=== PATIENT | female | born 1930 | race Caucasian/White ===

== ENCOUNTER 2017-03-30 07:16 | Day surgery (SDC) | payer MEDICARE, BC ==
[2017-03-30] MEDS ORDERED: Dextrose 5%-Lactated Ringers 1,000 ML IV SCH (07:45)
[2017-03-30] MEDS ORDERED: fentaNYL 100 MCG/2 ML SDV ONE (08:23)
[2017-03-30] MEDS ORDERED: Propofol 200 MG/20 ML SDV ONE (08:23)
[2017-03-30 13:13] VITALS: BP 163/66
--- NOTE | 2017-04-06 10:42 | OR ---
DATE OF PROCEDURE: 03/30/2017 PREOPERATIVE DIAGNOSIS: Intermittent diarrhea. POSTOPERATIVE DIAGNOSES: 1. Intermittent diarrhea associated with focal colitis involving the cecum and ascending colon. 2. Uncomplicated left colon diverticulosis. OPERATIVE PROCEDURE: Flexible colonoscopy with biopsies of cecum and ascending colon ([id number]). ANESTHESIA: IV sedation. INDICATION FOR PROCEDURE: This is an 86-year-old female presenting with some intermittent problems with diarrhea. She recently went off the metformin, which she thinks may have helped some, but she is still having some significant symptoms. There is some history of some blood in the diarrhea in the chart, but the patient denies having significant bleeding. Plan is to proceed with a flexible colonoscopy with biopsies and/or polypectomy as indicated. Potential risks including bleeding and perforation were discussed, and the patient wishes to proceed. DETAILS OF PROCEDURE: The patient was taken to the operating room and placed in a left lateral decubitus position. IV sedation was administered, after which the initial digital rectal exam was performed and was unremarkable. Colonoscope was then passed into the rectum with retroflexion revealing uncomplicated hemorrhoidal columns. The scope was eventually passed to the level of the cecum. The prep was fairly good with there being only a small amount of liquid stool present. The primary finding of note was that of focal colitis involving the cecum and ascending colon. The mucosa in this area was generally quite thickened and leathery, and had patchy reddened areas. There was no true ulceration at this point. Multiple biopsies were obtained from this area. As one passed in the transverse colon, the findings normalized and apart from some uncomplicated left colonic diverticulosis, the remainder of the colon exam was unremarkable. After the biopsies had been completed, the scope was withdrawn, and the above findings reconfirmed, and the procedure then concluded. At this point, we will not initiate any additional treatment. We will have this patient continue off the metformin, and she will be scheduled to follow up with Jen Chapman and/or the Internal Medicine staff at [facility] in 7 to 10 days. Raul Lilly MD /[id number]
== END 2017-03-30 13:15 | disposition home or self-care (01) ==
LOC: JP.SDS 07:16
PROVIDERS: ATTEND Surgery
DX: K63.3 Ulcer of intestine (principal); K57.30 Diverticulosis of large intestine without perforation or abscess without bleeding; K64.9 Unspecified hemorrhoids; K21.9 Gastro-esophageal reflux disease without esophagitis; I10 Essential (primary) hypertension; G43.909 Migraine, unspecified, not intractable, without status migrainosus; E11.9 Type 2 diabetes mellitus without complications; Z88.5 Allergy status to narcotic agent; Z98.890 Other specified postprocedural states
CPT/HCPCS: 45380; 87046; 87177; 87209; 87493; 87899; 88305; 89055; J2704; J3010; J7042

== ENCOUNTER 2020-04-07 11:57 | Inpatient (IN) | payer MEDICARE, OTHER ==
[2020-04-07] MEDS ORDERED: Sodium Chloride 0.9% 10 ML Syringe FLUSH PRN ×2 (13:49→19:26)
--- NOTE | 2020-04-07 13:59 | EDM.PDOC ---
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 States over the last 2 weeks she has continued to decline with poor oral intake she does feel nauseated was functioning quite independent prior to the stroke. No fevers, - Related Data Allergies Allergy/AdvReac Type Severity Reaction Status Date / Time metformin Allergy Cannot Verified 04/07/20 13:11 Remember codeine AdvReac Nausea and Verified 04/07/20 13:11 Vomiting oxycodone HCl [From Percocet] AdvReac Hallucinati Verified 04/07/20 13:11 ons Home Meds: Home Meds Aspirin 81 mg PO DAILY 03/17/14 [History] Cetirizine HCl [Zyrtec] 10 mg PO DAILY 03/17/14 [History] Fluticasone Propionate 2 spray KARLA DAILY 03/17/14 [History] Omeprazole 20 mg PO DAILY 03/17/14 [History] lisinopriL [Prinivil] 30 mg PO DAILY 03/17/14 [History] Metoprolol Tartrate [Lopressor] 50 mg PO DAILY 03/26/17 [History] Clopidogrel Bisulfate [Clopidogrel] 75 mg PO 04/07/20 [History] Mirtazapine 1 tab PO DAILY 04/07/20 [History] Ondansetron [Zofran ODT] 1 tab PO BID 04/07/20 [History] Past Medical History HEENT History: Reports: Allergic Rhinitis, Cataract, Impaired Vision, Otitis Media, Sinusitis, Other (See Below) Other HEENT History: 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 Cardiovascular History: Reports: Arrhythmia, Heart Murmur, High Cholesterol, H ypertension, Other (See Below) Other Cardiovascular History: tachycardia Respiratory History: Reports: Bronchitis, Recurrent Gastrointestinal History: Reports: Chronic Diarrhea, Gastritis, GERD Genitourinary History: Reports: UTI, Recurrent [employer] History: Reports: , Spontaneous Musculoskeletal History: Reports: Arthritis, Fracture, Osteoarthritis, Other (See Below) Other Musculoskeletal History: osteopenia Neurological History: Reports: Migraines, Vertigo Other Neuro History: x2 1970 and 2012 Psychiatric History: Reports: Depression Endocrine/Metabolic History: Reports: Diabetes, Type II, Other (See Below) Other Endocrine/Metabolic History: little nodule on us in thyroid Immunologic History: Reports: None Oncologic (Cancer) History: Reports: Other (See Below) Other Oncologic History: skin CA Dermatologic History: Reports: Other (See Below) 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 - Infectious Disease History Infectious Disease History: Reports: Chicken Pox, Measles, Mononucleosis, Pertussis (Whooping Cough) - Past Surgical History Head Surgeries/Procedures: Reports: None HEENT Surgical History: Reports: Cataract Surgery, Oral Surgery Cardiovascular Surgical History: Reports: None Respiratory Surgical History: Reports: None GI Surgical History: Reports: Appendectomy, Colostomy Female Surgical History: Reports: D&C Endocrine Surgical History: Reports: None Neurological Surgical History: Reports: None Musculoskeletal Surgical History: Reports: None Oncologic Surgical History: Reports: None Dermatological Surgical History: Reports: Plastic Surgical Reconstruction/Repair, Skin Biopsy Social & Family History - Family History Family Medical History: Noncontributory - Tobacco Use Smoking Status *Q: Never Smoker - Caffeine Use Caffeine Use: Reports: Coffee ED ROS GENERAL - Review of Systems Review Of Systems: See Below Constitutional: Reports: Weakness, Weight Loss HEENT: Reports: No Symptoms Respiratory: Reports: No Symptoms Cardiovascular: Reports: No Symptoms GI/Abdominal: Reports: Abdominal Pain (Gastric region), Nausea, Vomiting. Denies: Constipation, Diarrhea : Reports: No Symptoms Musculoskeletal: Reports: No Symptoms Skin: Reports: No Symptoms Neurological: Reports: No Symptoms ED EXAM, GENERAL - Physical Exam Exam: See Below Free Text/Narrative:: General: Elderly female not in any distress, alert GCS of 14 eyes only open to voice HEENT: head is atraumatic normocephalic, eyes pupils equal round reactive to light, sclera clear no conjunctivitis appreciated. Ears tympanic membranes clear and [place] landmarks and light reflex are present bilaterally canals are clear. Nose no septal deviation, nares are clear, no blood present. Mouth mucosa is moist and pink no erythema or exudate noted in soft palate, tongue is midline uvula is midline, dentition is intact. Neck: Supple no thyromegaly no tracheal deviation. Nodes: Cervical nodes subclavicular nodes nontender no palpable lymphadenopathy noted. Lungs: clear to auscultation bilaterally with symmetrical respirations, no adventitious noise appreciated. CV: Regular rate and rhythm S1 and S2 appreciated 2 out of 6 systolic ejection murmur best appreciated left sternal border murmurs rubs or gallops noted. Abdomen: Soft, nontender, no palpable masses or organomegaly appreciated, no dis tention no guarding bowel sounds are present, [scars ]. Neuro: Cranial nerves II test with pupillary light reflex 3 mm to 2 mm bilaterally, CN III test pupillary constriction, lid elevation and eye abduction bilaterally, CN IV downward movement of eyes bilaterally, CN V good jaw movement, CN lateral deviation of the eyes bilaterally to finger movement, CN VII symmetrical smile shows teeth without difficulty family states a slight droop on this side but I cannot appreciate it, CN VIII pass finger rub to ears bilaterally, CN IX adequate voice and tone, CN X adequate voice and tone no difficulty swallowing, CN XI can shrug shoulders without difficulty, CN XII can stick tongue out without difficulty, cranial nerves II to XII intact as tested, Skin: Warm and dry, intact Extremities: No lower extremity edema appreciated, pedal pulse is +2. Course - Vital Signs Last Recorded V/S: Last Vital Signs Temp 96.9 F 04/07/20 13:30 Pulse 96 04/07/20 13:30 Resp 14 04/07/20 13:30 BP 156/64 H 04/07/20 13:30 Pulse Ox 98 04/07/20 13:30 - Orders/Labs/Meds Orders: Active Orders 24 hr Category Date Time Status Peripheral IV Care [RC] . DIRECTED Care 04/07/20 13:50 Active CULTURE URINE [RM] Urgent Lab 04/07/20 16:18 Received Lactated Ringers [Ringers, Lactated] 1,000 ml Med 04/07/20 16:20 Active IV BOLUS Sodium Chloride 0.9% [Normal Saline] 1,000 ml Med 04/07/20 16:30 Active IV ASDIRECTED Sodium Chloride 0.9% [Saline Flush] Med 04/07/20 13:49 Active 10 ml FLUSH ASDIRECTED PRN Peripheral IV Insertion Adult [OM.PC] Stat Oth 04/07/20 13:49 Ordered Medication Orders Lactated Ringer's (Ringers, Lactated) 1,000 mls @ 250 mls/hr IV BOLUS ONE Stop: 04/07/20 20:19 Last Admin: 04/07/20 16:38 Dose: 250 mls/hr Documented by: HOLDEN Sodium Chloride (Normal Saline) 1,000 mls @ 250 mls/hr IV ASDIRECTED JULIANE Sodium Chloride (Saline Flush) 10 ml FLUSH ASDIRECTED PRN PRN Reason: Keep Vein Open Last Admin: 04/07/20 14:39 Dose: 10 ml Documented by: HOLDEN Labs: Laboratory Tests 04/07/20 04/07/20 04/07/20 Range/Units 14:05 14:05 14:05 WBC 14.7 H (4.5-11.0) K/uL RBC 5.16 (3.30-5.50) M/uL Hgb 14.7 (12.0-15.0) g/dL Hct 43.6 (36.0-48.0) % MCV 85 (80-98) fL MCH 29 (27-31) pg MCHC 34 (32-36) % Plt Count 439 H (150-400) K/uL Neut % (Auto) 84 H (36-66) % Lymph % (Auto) 10 L (24-44) % Gove % (Auto) 5 (2-6) % Eos % (Auto) 0 L (2-4) % Baso % (Auto) 0 (0-1) % Sodium 123 L (140-148) mmol/L Potassium 4.3 (3.6-5.2) mmol/L Chloride 91 L (100-108) mmol/L Carbon Dioxide 18 L (21-32) mmol/L Anion Gap 18.3 H (5.0-14.0) mmol/L BUN 35 H (7-18) mg/dL Creatinine 1.8 H (0.6-1.0) mg/dL Est Cr Clr Drug Dosing 15.52 mL/min Estimated GFR (MDRD) 27 L (>60) Glucose 194 H (74-106) mg/dL Lactic Acid 1.7 (0.4-2.0) mmol/L Calcium 9.7 (8.5-10.1) mg/dL Total Bilirubin 0.4 (0.2-1.0) mg/dL AST 39 H (15-37) U/L ALT 40 (12-78) U/L Alkaline Phosphatase 72 (46-116) U/L Troponin I < 0.017 (0.000-0.056) ng/mL Total Protein 7.9 (6.4-8.2) g/dL Albumin 3.6 (3.4-5.0) g/dL Globulin 4.3 H (2.3-3.5) g/dL Albumin/Globulin Ratio 0.8 L (1.2-2.2) TSH, Ultra Sensitive 2.418 (0.358-3.740) uIU/mL Urine Color (YELLOW) Urine Appearance (CLEAR) Urine pH (5.0-8.0) Ur Specific [place] (1.008-1.030) Urine Protein (NEGATIVE) mg/dL Urine Glucose (UA) (NEGATIVE) mg/dL Urine Ketones (NEGATIVE) mg/dL Urine Occult Blood (NEGATIVE) Urine Nitrite (NEGATIVE) Urine Bilirubin (NEGATIVE) Urine Urobilinogen (0.2-1.0) EU/dL Ur Leukocyte Esterase (NEGATIVE) Urine RBC (0-5) Urine WBC (0-5) Ur Epithelial Cells Amorphous Sediment Urine Bacteria Urine Mucus Urine Other 04/07/20 Range/Units 15:34 WBC (4.5-11.0) K/uL RBC (3.30-5.50) M/uL Hgb (12.0-15.0) g/dL Hct (36.0-48.0) % MCV (80-98) fL MCH (27-31) pg MCHC (32-36) % Plt Count (150-400) K/uL Neut % (Auto) (36-66) % Lymph % (Auto) (24-44) % [place] % (Auto) (2-6) % Eos % (Auto) (2-4) % Baso % (Auto) (0-1) % Sodium (140-148) mmol/L Potassium (3.6-5.2) mmol/L Chloride (100-108) mmol/L Carbon Dioxide (21-32) mmol/L Anion Gap (5.0-14.0) mmol/L BUN (7-18) mg/dL Creatinine (0.6-1.0) mg/dL Est Cr Clr Drug Dosing mL/min Estimated GFR (MDRD) (>60) Glucose (74-106) mg/dL Lactic Acid (0.4-2.0) mmol/L Calcium (8.5-10.1) mg/dL Total Bilirubin (0.2-1.0) mg/dL AST (15-37) U/L ALT (12-78) U/L Alkaline Phosphatase (46-116) U/L Troponin I (0.000-0.056) ng/mL Total Protein (6.4-8.2) g/dL Albumin (3.4-5.0) g/dL Globulin (2.3-3.5) g/dL Albumin/Globulin Ratio (1.2-2.2) TSH, Ultra Sensitive (0.358-3.740) uIU/mL Urine Color Yellow (YELLOW) Urine Appearance Slightly cloudy A (CLEAR) Urine pH 5.0 (5.0-8.0) Ur Specific [place] 1.025 (1.008-1.030) Urine Protein 30 H (NEGATIVE) mg/dL Urine Glucose (UA) Negative (NEGATIVE) mg/dL Urine Ketones 15 H (NEGATIVE) mg/dL Urine Occult Blood Small H (NEGATIVE) Urine Nitrite Positive H (NEGATIVE) Urine Bilirubin Negative (NEGATIVE) Urine Urobilinogen 0.2 (0.2-1.0) EU/dL Ur Leukocyte Esterase Negative (NEGATIVE) Urine RBC 5-10 H (0-5) Urine WBC 10-20 H (0-5) Ur Epithelial Cells Few Amorphous Sediment Not seen Urine Bacteria Many Urine Mucus Not seen Urine Other Meds: Medications Generic Name Dose Route Start Last Admin Trade Name Freq PRN Reason Stop Dose Admin Lactated Ringer's 1,000 mls @ 250 mls/hr 04/07/20 16:20 04/07/20 16:38 Ringers, Lactated IV 04/07/20 20:19 250 mls/hr BOLUS ONE Administration Sodium Chloride 1,000 mls @ 250 mls/hr 04/07/20 16:30 Normal Saline IV ASDIRECTED JULIANE Sodium Chloride 10 ml 04/07/20 13:49 04/07/20 14:39 Saline Flush FLUSH 10 ml ASDIRECTED PRN Administration Keep Vein Open Discontinued Medications Generic Name Dose Route Start Last Admin Trade Name Freq PRN Reason Stop Dose Admin Lactated Ringer's 1,000 mls @ 999 mls/hr 04/07/20 14:00 04/07/20 14:39 Ringers, Lactated IV 999 mls/hr ASDIRECTED JULIANE Administration Ceftriaxone Sodium 1 gm/ 50 mls @ 100 mls/hr 04/07/20 16:21 04/07/20 16:37 Sodium Chloride IV 04/07/20 16:50 100 mls/hr ONETIME ONE Administration Departure - Departure Time of Disposition: 16:59 Disposition: Admitted As Inpatient 67 Condition: Poor Clinical Impression: UTI, Urinary tract infectious disease - Discharge Information Referrals: Anand Jean [employer] [Primary Care Provider] - Forms: ED Department Discharge Sepsis Event Note (ED) - Evaluation Sepsis Screening Result: No Definite Risk - Focused Exam Vital Signs: Vital Signs Temp Pulse Resp BP Pulse Ox 04/07/20 13:30 96.9 F 96 14 156/64 H 98 - My Orders Last 24 Hours: My Active Orders 04/07/20 13:49 Sodium Chloride 0.9% [Saline Flush] 10 ml FLUSH ASDIRECTED PRN Peripheral IV Insertion Adult [OM.PC] Stat 04/07/20 13:50 Peripheral IV Care [RC] . DIRECTED 04/07/20 16:18 CULTURE URINE [RM] Urgent 04/07/20 16:20 Lactated Ringers [Ringers, Lactated] 1,000 ml IV BOLUS 04/07/20 16:30 Sodium Chloride 0.9% [Normal Saline] 1,000 ml IV ASDIRECTED - Assessment/Plan Last 24 Hours: My Active Orders 04/07/20 13:49 Sodium Chloride 0.9% [Saline Flush] 10 ml FLUSH ASDIRECTED PRN Peripheral IV Insertion Adult [OM.PC] Stat 04/07/20 13:50 Peripheral IV Care [RC] . DIRECTED 04/07/20 16:18 CULTURE URINE [RM] Urgent 04/07/20 16:20 Lactated Ringers [Ringers, Lactated] 1,000 ml IV BOLUS 04/07/20 16:30 Sodium Chloride 0.9% [Normal Saline] 1,000 ml IV ASDIRECTED Plan: Assessment Acuity = acute Site and laterality = urinary tract infection Etiology = probable bacterial cause Manifestations = generalized weakness Location of injury = Home Lab values = WBC elevated 14.7 consistent leukocytosis, sodium low at 123 consistent hyponatremia which is chronic creatinine elevated 1.4 consistent with acute renal failure stage G4 lactic acid normal 1.[address] scan describes no acute process in the abdomen urinalysis positive for nitrates 5-10 RBCs consistent with hematuria 10-20 WBCs consistent with pyuria cultures pending Plan Call discussed case with hospitalist on-call at 1650 kindly agreed to come and evaluate the patient in the emergency department for admission This note was dictated using [employer] voice recognition software please call with any questions on syntax or grammar.
[2020-04-07] MEDS ORDERED: Lactated Ringers 1,000 ML IV SCH (14:00)
[2020-04-07] MEDS ORDERED: Lactated Ringers 1,000 ML IV ONE (16:20)
[2020-04-07] MEDS ORDERED: cefTRIAXone 1 GM in Sodium Chloride 0.9% 50 ML IV ONE (16:21)
[2020-04-07] MEDS ORDERED: Sodium Chloride 0.9% 1,000 ML IV SCH ×2 (16:30→19:26)
--- NOTE | 2020-04-07 16:30 | CRLCT ---
Indication : Epigastric pain Noncontrast CT abdomen and pelvis coronal sagittal reformat images obtained. COMPARISON: No comparison studies are available Findings: The heart size is normal. There is no pericardial effusion. There is subpleural reticular opacities with may represent fibrosis. Nodular subpleural density in the right lower lobe this is on series 2 image 16 measuring approximately 1.5 x 0.5 cm which could represent area of nodular atelectasis however followup is recommended there is no effusion. Small hiatal hernia. Unenhanced liver gallbladder pancreas adrenal glands are unremarkable. Spleen is unremarkable. Kidneys appear unremarkable. Dense atherosclerotic calcification the aorta nonaneurysmal. Small 9 millimeter oval slightly dense lesion along the right posterior peritoneal surface of uncertain etiology. This could be followed up as well. Diverticulosis. No findings for diverticulitis. No suspicious bony lesions. 2 centimeter left ovarian cyst. Impression: 1. No acute findings in the abdomen or pelvis. Small hiatal hernia. 2. Diverticulosis. 3. Probable nodular atelectasis right lower lobe follow-up is recommended. 9 millimeter circumscribed slightly dense oval lesion along the right posterior peritoneal surface of uncertain etiology this could be followed up at the same time. 4. 2 centimeter left ovarian cyst. Routine pelvic ultrasound would be recommended. Please note that all CT scans at this facility use dose modulation, iterative reconstruction, and/or weight-based dosing when appropriate to reduce radiation dose to as low as reasonably achievable. Dictated by Sarah Woody MD @ Apr 07 2020 4:16PM Signed by Dr. Sarah Woody @ Apr 07 2020 4:29PM
--- NOTE | 2020-04-07 17:39 | PCM.HP.2 ---
H&P History of Present Illness - General Date of Service: 04/07/20 Admit Problem/Dx: Admission Diagnosis/Problem Admission Diagnosis/Problem UTI (urinary tract infection), uncomplicated Source of Information: Patient, Family, Provider, RN Notes Reviewed History Limitations: Reports: No Limitations - History of Present Illness Initial Comments - Free Text/Narative: Ms. Clemente is an 89-year-old woman who was admitted through the emergency department with weakness, dehydration, diarrhea, nausea and vomiting, secondary to urinary tract infection. 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 Her course in the hospital with her CVA was complicated by urinary tract infection and she received a course of antibiotic therapy with Septra. Over the last 10 to 14 days she has developed nausea and vomiting as well as diarrhea with 2-4 stools per day. Oral intake has been minimal and she has become progressively more weak. Her daughters brought her into the emergency department today. Urinalysis shows evidence of urinary tract infection and her white blood cell count is elevated. Creatinine found to be elevated from baseline. CT scan of the abdomen pelvis showed no obvious abnormality to explain her current diarrhea, nausea, and vomiting. - Related Data Allergies/Adverse Reactions: Allergies Allergy/AdvReac Type Severity Reaction Status Date / Time metformin Allergy Cannot Verified 04/07/20 13:11 Remember codeine AdvReac Nausea and Verified 04/07/20 13:11 Vomiting oxycodone HCl [From Percocet] AdvReac Hallucinati Verified 04/07/20 13:11 ons Home Medications: Home Meds Aspirin 81 mg PO DAILY 03/17/14 [History] Cetirizine HCl [Zyrtec] 10 mg PO DAILY 03/17/14 [History] Fluticasone Propionate 2 spray KARLA DAILY 03/17/14 [History] Omeprazole 20 mg PO DAILY 03/17/14 [History] lisinopriL [Prinivil] 30 mg PO DAILY 03/17/14 [History] Metoprolol Tartrate [Lopressor] 50 mg PO DAILY 03/26/17 [History] Clopidogrel Bisulfate [Clopidogrel] 75 mg PO 04/07/20 [History] Mirtazapine 1 tab PO DAILY 04/07/20 [History] Ondansetron [Zofran ODT] 1 tab PO BID 04/07/20 [History] Past Medical History HEENT History: Reports: Allergic Rhinitis, Cataract, Impaired Vision, Otitis Media, Sinusitis, Other (See Below) Other HEENT History: 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 Cardiovascular History: Reports: Arrhythmia, Heart Murmur, High Cholesterol, Hypertension, Other (See Below) Other Cardiovascular History: tachycardia Respiratory History: Reports: Bronchitis, Recurrent Gastrointestinal History: Reports: Chronic Diarrhea, Gastritis, GERD Genitourinary History: Reports: UTI, Recurrent [employer]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: , 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 Musculoskeletal History: Reports: Arthritis, Fracture, Osteoarthritis, Other (See Below) Other Musculoskeletal History: osteopenia Neurological History: Reports: Migraines, Vertigo Other Neuro History: x2 1970 and 2012 Psychiatric History: Reports: Depression Endocrine/Metabolic History: Reports: Diabetes, Type II, Other (See Below) Other Endocrine/Metabolic History: little nodule on us in thyroid Hematologic History: Reports: None Immunologic History: Reports: None Oncologic (Cancer) History: Reports: Other (See Below) Other Oncologic History: skin CA Dermatologic History: Reports: Other (See Below) 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 - Infectious Disease History Infectious Disease History: Reports: Chicken Pox, Measles, Mononucleosis, Pertussis (Whooping Cough) - Past Surgical History Head Surgeries/Procedures: Reports: None HEENT Surgical History: Reports: Cataract Surgery, Oral Surgery Cardiovascular Surgical History: Reports: None Respiratory Surgical History: Reports: None GI Surgical History: Reports: Appendectomy, Colostomy Female Surgical History: Reports: D&C Endocrine Surgical History: Reports: None Neurological Surgical History: Reports: None Musculoskeletal Surgical History: Reports: None Oncologic Surgical History: Reports: None Dermatological Surgical History: Reports: Plastic Surgical Reconstruction /Repair, Skin Biopsy Social & Family History - Family History Family Medical History: Noncontributory - Tobacco Use Smoking Status *Q: Never Smoker - Caffeine Use Caffeine Use: Reports: Coffee H&P Review of Systems - Review of Systems: Review Of Systems: See Below General: Reports: Weakness, Fatigue, Decreased Appetite. Denies: Fever, Chills HEENT: Reports: No Symptoms Pulmonary: Reports: No Symptoms Cardiovascular: Reports: No Symptoms Gastrointestinal: Reports: Abdominal Pain, Diarrhea, Decreased Appetite, Hematemesis, Hematochezia, Melena, Mucous in Stool, Nausea, Vomiting. Denies: Constipation Genitourinary: Reports: No Symptoms Musculoskeletal: Reports: No Symptoms Skin: Reports: No Symptoms Psychiatric: Reports: No Symptoms Neurological: Reports: Confusion, Pre-Existing Deficit, Weakness (Left upper and lower extremity). Denies: Seizure, Tremors, Trouble Speaking Hematologic/Lymphatic: Reports: No Symptoms Immunologic: Reports: No Symptoms Exam - Exam Exam: See Below - Vital Signs Vital Signs: Last Vital Signs Temp 99.0 F 04/07/20 17: Pulse 96 04/07/20 17: Resp 16 04/07/20 17: BP 158/61 H 04/07/20 17: Pulse Ox 96 04/07/20 17:22 Weight: 112 lb - Exam Quality Assessment: DVT Prophylaxis General: Alert, Cooperative, Mild Distress. No: Oriented HEENT: Conjunctiva Clear, Hearing Intact, Normal Nasal Septum, Posterior Pharynx Clear, Pupils Equal. No: Mucosa Moist & [place] Neck: Supple, Trachea Midline, +2 Carotid Pulse wo Bruit Lungs: Clear to Auscultation, Normal Respiratory Effort Cardiovascular: Regular Rate, Regular Rhythm, Normal S1, Normal S2. No: Systolic Murmur, Diastolic Murmur GI/Abdominal Exam: Soft, No Organomegaly, Tender. No: Distended, Guarding, Rigid, Rebound Back Exam: Normal Inspection, Full Range of Motion Extremities: Non-Tender, No Pedal Edema Skin: Warm, Dry, Intact Neurological: Strength Equal Bilateral (Left upper and lower extremity weakness), Normal Speech, Sensation Intact, Focal Deficit. No: Cranial Nerves Intact (Very mild left facial weakness) Neuro Extensive - Mental Status: Alert, Oriented x3, Normal Mood/Affect, Memory Loss-Recent Events. No: Memory Intact - Patient Data Lab Results Last 24 hrs: Laboratory Results - last 24 hr 04/07/20 04/07/20 04/07/20 Range/Units 14:05 14:05 14:05 WBC 14.7 H (4.5-11.0) K/uL RBC 5.16 (3.30-5.50) M/uL Hgb 14.7 (12.0-15.0) g/dL Hct 43.6 (36.0-48.0) % MCV 85 (80-98) fL MCH 29 (27-31) pg MCHC 34 (32-36) % Plt Count 439 H (150-400) K/uL Neut % (Auto) 84 H (36-66) % Lymph % (Auto) 10 L (24-44) % [place] % (Auto) 5 (2-6) % Eos % (Auto) 0 L (2-4) % Baso % (Auto) 0 (0-1) % Sodium 123 L (140-148) mmol/L Potassium 4.3 (3.6-5.2) mmol/L Chloride 91 L (100-108) mmol/L Carbon Dioxide 18 L (21-32) mmol/L Anion Gap 18.3 H (5.0-14.0) mmol/L BUN 35 H (7-18) mg/dL Creatinine 1.8 H (0.6-1.0) mg/dL Est Cr Clr Drug Dosing 15.52 mL/min Estimated GFR (MDRD) 27 L (>60) Glucose 194 H (74-106) mg/dL Lactic Acid 1.7 (0.4-2.0) mmol/L Calcium 9.7 (8.5-10.1) mg/dL Total Bilirubin 0.4 (0.2-1.0) mg/dL AST 39 H (15-37) U/L ALT 40 (12-78) U/L Alkaline Phosphatase 72 (46-116) U/L Troponin I < 0.017 (0.000-0.056) ng/mL Total Protein 7.9 (6.4-8.2) g/dL Albumin 3.6 (3.4-5.0) g/dL Globulin 4.3 H (2.3-3.5) g/dL Albumin/Globulin Ratio 0.8 L (1.2-2.2) TSH, Ultra Sensitive 2.418 (0.358-3.740) uIU/mL Urine Color (YELLOW) Urine Appearance (CLEAR) Urine pH (5.0-8.0) Ur Specific [place] (1.008-1.030) Urine Protein (NEGATIVE) mg/dL Urine Glucose (UA) (NEGATIVE) mg/dL Urine Ketones (NEGATIVE) mg/dL Urine Occult Blood (NEGATIVE) Urine Nitrite (NEGATIVE) Urine Bilirubin (NEGATIVE) Urine Urobilinogen (0.2-1.0) EU/dL Ur Leukocyte Esterase (NEGATIVE) Urine RBC (0-5) Urine WBC (0-5) Ur Epithelial Cells Amorphous Sediment Urine Bacteria Urine Mucus Urine Other 04/07/20 Range/Units 15:34 WBC (4.5-11.0) K/uL RBC (3.30-5.50) M/uL Hgb (12.0-15.0) g/dL Hct (36.0-48.0) % MCV (80-98) fL MCH (27-31) pg MCHC (32-36) % Plt Count (150-400) K/uL Neut % (Auto) (36-66) % Lymph % (Auto) (24-44) % [place] % (Auto) (2-6) % Eos % (Auto) (2-4) % Baso % (Auto) (0-1) % Sodium (140-148) mmol/L Potassium (3.6-5.2) mmol/L Chloride (100-108) mmol/L Carbon Dioxide (21-32) mmol/L Anion Gap (5.0-14.0) mmol/L BUN (7-18) mg/dL Creatinine (0.6-1.0) mg/dL Est Cr Clr Drug Dosing mL/min Estimated GFR (MDRD) (>60) Glucose (74-106) mg/dL Lactic Acid (0.4-2.0) mmol/L Calcium (8.5-10.1) mg/dL Total Bilirubin (0.2-1.0) mg/dL AST (15-37) U/L ALT (12-78) U/L Alkaline Phosphatase (46-116) U/L Troponin I (0.000-0.056) ng/mL Total Protein (6.4-8.2) g/dL Albumin (3.4-5.0) g/dL Globulin (2.3-3.5) g/dL Albumin/Globulin Ratio (1.2-2.2) TSH, Ultra Sensitive (0.358-3.740) uIU/mL Urine Color Yellow (YELLOW) Urine Appearance Slightly cloudy A (CLEAR) Urine pH 5.0 (5.0-8.0) Ur Specific [place] 1.025 (1.008-1.030) Urine Protein 30 H (NEGATIVE) mg/dL Urine Glucose (UA) Negative (NEGATIVE) mg/dL Urine Ketones 15 H (NEGATIVE) mg/dL Urine Occult Blood Small H (NEGATIVE) Urine Nitrite Positive H (NEGATIVE) Urine Bilirubin Negative (NEGATIVE) Urine Urobilinogen 0.2 (0.2-1.0) EU/dL Ur Leukocyte Esterase Negative (NEGATIVE) Urine RBC 5-10 H (0-5) Urine WBC 10-20 H (0-5) Ur Epithelial Cells Few Amorphous Sediment Not seen Urine Bacteria Many Urine Mucus Not seen Urine Other Result Diagrams: 04/07/20 14:05 04/07/20 14:05 Sepsis Event Note - Evaluation Sepsis Screening Result: No Definite Risk - Focused Exam Vital Signs: Vital Signs Temp Pulse Resp BP Pulse Ox 04/07/20 17:22 99.0 F 96 16 158/61 H 96 04/07/20 13:30 96.9 F 96 14 156/64 H 98 *Q Meaningful Use (ADM) - VTE Risk Assess *Q Each Risk Factor Represents 1 Point: None Total Score 1 Point Risk Factors: 0 Each Risk Factor Represents 2 Points: None Total Score 2 Point Risk Factors: 0 Each Risk Factor Represents 3 Points: Age 75 Years or Greater Total Score 3 Point Risk Factors: 3 Each Risk Factor Represents 5 Points: None Total Score 5 Point Risk Factors: 0 Venous Thromboembolism Risk Factor Score *Q: 3 Problem List Initiated/Reviewed/Updated: Yes Orders Last 24hrs: Active Orders 24 hr Category Date Time Status Patient Status Manage Transfer [TRANSFER] Routine ADT 04/07/20 17:30 Ordered Peripheral IV Care [RC] . DIRECTED Care 04/07/20 13:50 Active CULTURE URINE [RM] Urgent Lab 04/07/20 16:18 Received Lactated Ringers [Ringers, Lactated] 1,000 ml Med 04/07/20 16:20 Active IV BOLUS Sodium Chloride 0.9% [Normal Saline] 1,000 ml Med 04/07/20 16:30 Active IV ASDIRECTED Sodium Chloride 0.9% [Saline Flush] Med 04/07/20 13:49 Active 10 ml FLUSH ASDIRECTED PRN Peripheral IV Insertion Adult [OM.PC] Stat Oth 04/07/20 13:49 Ordered Resuscitation Status Routine Resus Stat 04/07/20 17:34 Ordered Medication Orders Lactated Ringer's (Ringers, Lactated) 1,000 mls @ 250 mls/hr IV BOLUS ONE Stop: 04/07/20 20:19 Last Admin: 04/07/20 16:38 Dose: 250 mls/hr Documented by: HOLDEN Sodium Chloride (Normal Saline) 1,000 mls @ 250 mls/hr IV ASDIRECTED JULIANE Sodium Chloride (Saline Flush) 10 ml FLUSH ASDIRECTED PRN PRN Reason: Keep Vein Open Last Admin: 04/07/20 14:39 Dose: 10 ml Documented by: HOLDEN Assessment/Plan Comment:: ASSESSMENT AND PLAN URINARY TRACT INFECTION-history of recent infection treated with Septra. White blood cell count found to be elevated with evidence of UTI noted on urinalysis. -Urine culture pending -Ceftriaxone IV pending culture results NAUSEA VOMITING AND DIARRHEA-present for the past 2 weeks, poor oral intake with progressive weakness and dehydration. May be secondary to underlying urinary tract infection versus enteritis/colitis. -IV fluids for hydration -Nausea medication as needed -Stool for culture, WBC, C. difficile -Tonics 40 mg IV every 12 hours CHRONIC KIDNEY DISEASE STAGE III-increase in creatinine from baseline likely secondary to dehydration -IV fluids as above -Closely monitor urine output and renal function DEHYDRATION -IV fluids as above RECENT CVA-residual left-sided weakness, exacerbated by current illness -Physical therapy consult MAINTENANCE ISSUES -DVT prophylaxis; Lovenox 30 mg subcu daily -GI prophylaxis; Protonix as above -Kum[place] catheter; not indicated -Nutrition; 2 g sodium diet -Nicotine dependence; not required CODE STATUS-FULL CODE ADMISSION STATUS-patient will be admitted to inpatient status, expect at least a 2 night hospital stay for evaluation and management of problems as outlined above. At the time of this admission I do not reasonably expected evaluation and management of this problem will require more than a 96 hour hospital stay. DISPOSITION-anticipate discharge to home after the hospital stay. PRIMARY CARE PROVIDER-Anand Jean - Mortality Measure Prognosis:: Good
[2020-04-07] MEDS ORDERED: Acetaminophen 325 MG Tab PO PRN (19:26)
[2020-04-07] MEDS ORDERED: Pantoprazole 40 MG Vial IVPUSH SCH (19:26)
[2020-04-07] MEDS ORDERED: Ondansetron 4 MG/2 ML SDV IV PRN (19:26)
[2020-04-07] MEDS ORDERED: Polyethylene Glycol 3350 Powder 17 GM Packet PO PRN (19:26)
[2020-04-07] MEDS: Enoxaparin 30 MG/0.3 ML Syringe SUBCUT SCH (20:37)
[2020-04-07] MEDS: Melatonin 3 MG Tab PO SCH (20:37)
[2020-04-07] MEDS ORDERED: Dimethicone 20%/Zinc Oxide 25% 56 GM Spray Bottle TOP PRN (22:41)
[2020-04-08] MEDS ORDERED: Pantoprazole 40 MG Vial IVPUSH SCH (08:00)
[2020-04-08] MEDS ORDERED: FLUTICASONE PROPIONATE NAS PRN (08:11)
[2020-04-08] MEDS ORDERED: Fluticasone Propionate Nasal Spray 16 GM Bottle NAS PRN (08:37)
[2020-04-08] MEDS: Pantoprazole 40 MG Tab.CR PO SCH (08:56)
[2020-04-08] MEDS: Aspirin 81 MG Tab.EC PO SCH (08:56)
[2020-04-08] MEDS: Clopidogrel 75 MG Tab PO SCH (08:57)
[2020-04-08] MEDS: Cetirizine 10 MG Tab PO SCH (08:57)
[2020-04-08] MEDS: Magnesium Oxide 400 MG Tab PO SCH ×2 (08:57→21:16)
[2020-04-08] MEDS ORDERED: Mirtazapine 15 MG Tab PO SCH (09:00)
[2020-04-08] MEDS ORDERED: Non-Formulary Medication 1 Each (Aspirin [Aspirin] 81 MG) PO SCH (09:00)
[2020-04-08] MEDS ORDERED: Non-Formulary Medication 1 Each (Cetirizine Hcl [Zyrtec] 10 MG) PO SCH (09:00)
[2020-04-08] MEDS ORDERED: LISINOPRIL 30 MG PO SCH (09:00)
[2020-04-08] MEDS ORDERED: Metoprolol Tartrate 25 MG Tab PO SCH (09:00)
[2020-04-08] MEDS ORDERED: Non-Formulary Medication 1 Each (Omeprazole [Omeprazole] 20 MG) PO SCH (09:00)
[2020-04-08] MEDS ORDERED: Magnesium Sulfate/Water 2 GM in Premix Bag 1 BAG IV ONE (09:00)
--- NOTE | 2020-04-08 09:29 | PCM.PN ---
- General Info Date of Service: 04/08/20 Subjective Update: Ms. Clemente has been stable since admission, afebrile with good vital signs. She has had no nausea, vomiting, or diarrhea since admission. When seen this morning she is sitting in the chair and eating breakfast without significant difficulty. Functional Status: Reports: Tolerating Diet, Urinating - Review of Systems General: Reports: Weakness, Fatigue. Denies: Fever, Chills Pulmonary: Reports: No Symptoms Cardiovascular: Reports: No Symptoms Gastrointestinal: Reports: No Symptoms - Patient Data Vitals - Most Recent: Last Vital Signs Temp 98.2 F 04/08/20 03:16 Pulse 93 04/08/20 08:56 Resp 16 04/08/20 07:14 BP 122/47 L 04/08/20 08:56 Pulse Ox 96 04/08/20 07:14 Weight - Most Recent: 110 lb 1.6 oz I&O - Last 24 Hours: Intake & Output 04/07/20 04/08/20 04/08/20 22:59 06:59 14:59 Intake Total 1119 50 Output Total 300 Balance 819 50 Lab Results Last 24 Hours: Laboratory Results - last 24 hr 04/07/20 04/07/20 04/07/20 Range/Units 14:05 14:05 14:05 WBC 14.7 H (4.5-11.0) K/uL RBC 5.16 (3.30-5.50) M/uL Hgb 14.7 (12.0-15.0) g/dL Hct 43.6 (36.0-48.0) % MCV 85 (80-98) fL MCH 29 (27-31) pg MCHC 34 (32-36) % Plt Count 439 H (150-400) K/uL Neut % (Auto) 84 H (36-66) % Lymph % (Auto) 10 L (24-44) % [place] % (Auto) 5 (2-6) % Eos % (Auto) 0 L (2-4) % Baso % (Auto) 0 (0-1) % Sodium 123 L (140-148) mmol/L Potassium 4.3 (3.6-5.2) mmol/L Chloride 91 L (100-108) mmol/L Carbon Dioxide 18 L (21-32) mmol/L Anion Gap 18.3 H (5.0-14.0) mmol/L BUN 35 H (7-18) mg/dL Creatinine 1.8 H (0.6-1.0) mg/dL Est Cr Clr Drug Dosing 15.52 mL/min Estimated GFR (MDRD) 27 L (>60) Glucose 194 H (74-106) mg/dL Lactic Acid 1.7 (0.4-2.0) mmol/L Calcium 9.7 (8.5-10.1) mg/dL Magnesium (1.8-2.4) mg/dL Total Bilirubin 0.4 (0.2-1.0) mg/dL AST 39 H (15-37) U/L ALT 40 (12-78) U/L Alkaline Phosphatase 72 (46-116) U/L Troponin I < 0.017 (0.000-0.056) ng/mL Total Protein 7.9 (6.4-8.2) g/dL Albumin 3.6 (3.4-5.0) g/dL Globulin 4.3 H (2.3-3.5) g/dL Albumin/Globulin Ratio 0.8 L (1.2-2.2) TSH, Ultra Sensitive 2.418 (0.358-3.740) uIU/mL Urine Color (YELLOW) Urine Appearance (CLEAR) Urine pH (5.0-8.0) Ur Specific [place] (1.008-1.030) Urine Protein (NEGATIVE) mg/dL Urine Glucose (UA) (NEGATIVE) mg/dL Urine Ketones (NEGATIVE) mg/dL Urine Occult Blood (NEGATIVE) Urine Nitrite (NEGATIVE) Urine Bilirubin (NEGATIVE) Urine Urobilinogen (0.2-1.0) EU/dL Ur Leukocyte Esterase (NEGATIVE) Urine RBC (0-5) Urine WBC (0-5) Ur Epithelial Cells Amorphous Sediment Urine Bacteria Urine Mucus Urine Other 04/07/20 04/08/20 04/08/20 Range/Units 15:34 05:30 05:30 WBC 8.1 (4.5-11.0) K/uL RBC 4.01 (3.30-5.50) M/uL Hgb 11.6 L D (12.0-15.0) g/dL Hct 34.5 L (36.0-48.0) % MCV 86 (80-98) fL MCH 29 (27-31) pg MCHC 34 (32-36) % Plt Count 374 (150-400) K/uL Neut % (Auto) 61 (36-66) % Lymph % (Auto) 29 (24-44) % [place] % (Auto) 8 H (2-6) % Eos % (Auto) 1 L (2-4) % Baso % (Auto) 1 (0-1) % Sodium 132 L (140-148) mmol/L Potassium 4.2 (3.6-5.2) mmol/L Chloride 101 (100-108) mmol/L Carbon Dioxide 22 (21-32) mmol/L Anion Gap 13.2 (5.0-14.0) mmol/L BUN 23 H (7-18) mg/dL Creatinine 1.1 H (0.6-1.0) mg/dL Est Cr Clr Drug Dosing 25.39 mL/min Estimated GFR (MDRD) 47 L (>60) Glucose 93 (74-106) mg/dL Lactic Acid (0.4-2.0) mmol/L Calcium 8.6 (8.5-10.1) mg/dL Magnesium 1.7 L (1.8-2.4) mg/dL Total Bilirubin (0.2-1.0) mg/dL AST (15-37) U/L ALT (12-78) U/L Alkaline Phosphatase (46-116) U/L Troponin I (0.000-0.056) ng/mL Total Protein (6.4-8.2) g/dL Albumin (3.4-5.0) g/dL Globulin (2.3-3.5) g/dL Albumin/Globulin Ratio (1.2-2.2) TSH, Ultra Sensitive (0.358-3.740) uIU/mL Urine Color Yellow (YELLOW) Urine Appearance Slightly cloudy A (CLEAR) Urine pH 5.0 (5.0-8.0) Ur Specific [place] 1.025 (1.008-1.030) Urine Protein 30 H (NEGATIVE) mg/dL Urine Glucose (UA) Negative (NEGATIVE) mg/dL Urine Ketones 15 H (NEGATIVE) mg/dL Urine Occult Blood Small H (NEGATIVE) Urine Nitrite Positive H (NEGATIVE) Urine Bilirubin Negative (NEGATIVE) Urine Urobilinogen 0.2 (0.2-1.0) EU/dL Ur Leukocyte Esterase Negative (NEGATIVE) Urine RBC 5-10 H (0-5) Urine WBC 10-20 H (0-5) Ur Epithelial Cells Few Amorphous Sediment Not seen Urine Bacteria Many Urine Mucus Not seen Urine Other Jeff Results Last 24 Hours: Microbiology 04/07/20 16:18 Urine Culture - Preliminary Urine, Catheterized Med Orders - Current: Current Medications Acetaminophen (Tylenol) 650 mg PO Q4H PRN PRN Reason: Pain (Mild 1-3)/fever Aspirin (Halfprin) 81 mg PO DAILY [facility] Last Admin: 04/08/20 08:56 Dose: 81 mg Documented by: Cetirizine HCl (Zyrtec) 10 mg PO DAILY [facility] Last Admin: 04/08/20 08:57 Dose: 10 mg Documented by: Clopidogrel Bisulfate (Plavix) 75 mg PO DAILY [facility] Last Admin: 04/08/20 08:57 Dose: 75 mg Documented by: Dimethicone/Zinc Oxide (Rash Relief-Zinc Oxide [place]) 30 gm TOP ASDIRECTED PRN PRN Reason: Rash Last Admin: 04/07/20 23:46 Dose: 1 spray Documented by: Enoxaparin Sodium (Lovenox) 30 mg SUBCUT BEDTIME [facility] Last Admin: 04/07/20 20:37 Dose: 30 mg Documented by: Fluticasone Propionate (Flonase) 0 gm KARLA DAILY PRN PRN Reason: ALLERGIES Ceftriaxone Sodium 1 gm/ (Sodium Chloride) 50 mls @ 100 mls/hr IV Q24H [facility] Magnesium Sulfate 2 gm/ Premix 50 mls @ 25 mls/hr IV ONETIME ONE Stop: 04/08/20 10:59 Last Admin: 04/08/20 08:56 Dose: 25 mls/hr Documented by: Magnesium Oxide (Magnesium Oxide) 400 mg PO BID [facility] Last Admin: 04/08/20 08:57 Dose: 400 mg Documented by: Melatonin (Melatonin) 9 mg PO BEDTIME [facility] Last Admin: 04/07/20 20:37 Dose: 9 mg Documented by: Metoprolol Succinate 50 mg/ (Metoprolol Succinate 25 mg) 75 mg PO BID [facility] Last Admin: 04/08/20 08:56 Dose: 75 mg Documented by: Mirtazapine (Remeron) 7.5 mg PO BEDTIME [facility] Non-Formulary Medication (Lisinopril [Prinivil]) 30 mg PO DAILY [facility] Ondansetron HCl (Zofran) 4 mg IV Q4H PRN PRN Reason: Nausea/Vomiting Pantoprazole Sodium (Protonix) 40 mg PO ACBREAKFAST [facility] Last Admin: 04/08/20 08:56 Dose: 40 mg Documented by: Polyethylene Glycol (Miralax) 17 gm PO DAILY PRN PRN Reason: Constipation Sodium Chloride (Saline Flush) 10 ml FLUSH ASDIRECTED PRN PRN Reason: Keep Vein Open Discontinued Medications Lactated Ringer's (Ringers, Lactated) 1,000 mls @ 999 mls/hr IV ASDIRECTED [facility] Last Admin: 04/07/20 14:39 Dose: 999 mls/hr Documented by: Lactated Ringer's (Ringers, Lactated) 1,000 mls @ 250 mls/hr IV BOLUS ONE Stop: 04/07/20 20:19 Last Admin: 04/07/20 16:38 Dose: 250 mls/hr Documented by: Ceftriaxone Sodium 1 gm/ (Sodium Chloride) 50 mls @ 100 mls/hr IV ONETIME ONE Stop: 04/07/20 16:50 Last Admin: 04/07/20 16:37 Dose: 100 mls/hr Documented by: Sodium Chloride (Normal Saline) 1,000 mls @ 250 mls/hr IV ASDIRECTED [facility] Sodium Chloride (Normal Saline) 1,000 mls @ 75 mls/hr IV ASDIRECTED [facility] Last Admin: 04/07/20 23:02 Dose: 75 mls/hr Documented by: Pantoprazole Sodium (Protonix Iv) 40 mg IVPUSH Q12H [facility] Last Admin: 04/07/20 20:37 Dose: 40 mg Documented by: Pantoprazole Sodium (Protonix Iv) 40 mg IVPUSH Q12H [facility] Sodium Chloride (Saline Flush) 10 ml FLUSH ASDIRECTED PRN PRN Reason: Keep Vein Open Last Admin: 04/07/20 14:39 Dose: 10 ml Documented by: - Exam Quality Assessment: DVT Prophylaxis General: Alert, Oriented, Cooperative, No Acute Distress Lungs: Clear to Auscultation, Normal Respiratory Effort Cardiovascular: Regular Rate, Regular Rhythm GI/Abdominal Exam: Soft, Non-Tender, No Organomegaly, No Distention Extremities: Non-Tender, No Pedal Edema Sepsis Event Note - Evaluation Sepsis Screening Result: No Definite Risk - Focused Exam Vital Signs: Vital Signs Temp Pulse Pulse Resp BP BP BP 04/08/20 08:56 93 122/47 L 04/08/20 07:14 93 16 122/47 L 04/08/20 03:16 98.2 F 91 16 110/44 L 04/07/20 23:48 107/38 L 04/07/20 22:17 98.5 F 93 16 93/41 L Pulse Ox 04/08/20 08:56 04/08/20 07:14 96 04/08/20 03:16 97 04/07/20 23:48 04/07/20 22:17 97 - Problem List Review Problem List Initiated/Reviewed/Updated: Yes - My Orders Last 24 Hours: My Active Orders 04/07/20 Dinner 2 Gram Sodium Diet [DIET] 04/07/20 17:34 Resuscitation Status Routine 04/07/20 18:31 CULTURE STOOL + SHIGATOX [RM] Stat Clostridium [CLOS DIFFICILE PCR W/REFLEX] [RM] Stat WBC, STOOL [OP] Stat 04/07/20 19:26 Acetaminophen [TylenoL] 650 mg PO Q4H PRN Ondansetron [Zofran] 4 mg IV Q4H PRN Sodium Chloride 0.9% [Saline Flush] 10 ml FLUSH ASDIRECTED PRN polyethylene glycoL 3350 [MiraLAX] 17 gm PO DAILY PRN 04/07/20 19:26 Patient Status [ADT] Routine Ambulate [RC] QID Height and Weight [RC] DAILY Intake and Output [RC] QSHIFT Notify Provider Vital Signs [RC] ASDIRECTED Oxygen Therapy [RC] PRN Peripheral IV Care [RC] . DIRECTED Up With Assistance [RC] ASDIRECTED Up to Chair [RC] QID VTE/DVT Education [RC] Per Unit Routine Vital Signs [RC] Q4H PT Evaluation and Treatment [CONS] Routine Peripheral IV Insertion Adult [OM.PC] Routine 04/07/20 21:00 Enoxaparin [Lovenox] 30 mg SUBCUT BEDTIME Melatonin 9 mg PO BEDTIME 04/07/20 22:41 Dimethicone/Zinc Oxide [Rash Relief-Zinc Oxide [place]] 30 gm TOP ASDIRECTED PRN 04/08/20 08:37 Fluticasone Propionate [Flonase] 0 gm KARLA DAILY PRN 04/08/20 09:00 Aspirin [Halfprin] 81 mg PO DAILY Cetirizine [ZyrTEC] 10 mg PO DAILY Clopidogrel [Plavix] 75 mg PO DAILY Magnesium Oxide 400 mg PO BID Magnesium Sulfate/Water [Magnesium Sulfate in Water Premix] 2 gm Premix Bag 1 bag IV ONETIME Metoprolol Succinate [Toprol Xl] 75 mg PO BID Pantoprazole [ProTONIX] 40 mg PO ACBREAKFAST lisinopriL [Prinivil] 30 mg PO DAILY 04/08/20 09:25 Convert IV to Saline Lock [OM.PC] Routine 04/08/20 17:00 cefTRIAXone [Rocephin] 1 gm Sodium Chloride 0.9% [Normal Saline] 50 ml IV Q24H 04/08/20 21:00 Mirtazapine [Remeron] 7.5 mg PO BEDTIME - Plan Plan:: ASSESSMENT AND PLAN URINARY TRACT INFECTION-history of recent infection treated with Septra. White blood cell count found to be elevated with evidence of UTI noted on urinalysis. Urine culture growing gram-negative rods, final ID and sensitivities pending. -Urine culture pending -Ceftriaxone IV pending culture results NAUSEA VOMITING AND DIARRHEA-asymptomatic since admission with no diarrhea or nausea. -Saline lock IV -Nausea medication as needed -Protonix 40 mg p.o. daily CHRONIC KIDNEY DISEASE STAGE III-renal function improved with hydration overnight -Closely monitor urine output and renal function DEHYDRATION-resolved RECENT CVA-residual left-sided weakness, exacerbated by current illness -Physical therapy consult MAINTENANCE ISSUES -DVT prophylaxis; Lovenox 30 mg subcu daily -GI prophylaxis; Protonix as above -Kumari catheter; not indicated -Nutrition; 2 g sodium diet -Nicotine dependence; not required CODE STATUS-FULL CODE ADMISSION STATUS-patient will be admitted to inpatient status, expect at least a 2 night hospital stay for evaluation and management of problems as outlined above. At the time of this admission I do not reasonably expected evaluation and management of this problem will require more than a 96 hour hospital stay. DISPOSITION-anticipate discharge to home after the hospital stay. PRIMARY CARE PROVIDER-Anand Jean
[2020-04-08] MEDS: Lisinopril 20 MG Tab PO SCH (12:52)
[2020-04-08] MEDS ORDERED: cefTRIAXone 1 GM in Sodium Chloride 0.9% 50 ML IV SCH (17:00)
[2020-04-08] MEDS: Enoxaparin 30 MG/0.3 ML Syringe SUBCUT SCH (21:16)
[2020-04-08] MEDS: Mirtazapine 15 MG Tab PO SCH (21:16)
[2020-04-08] MEDS: Melatonin 3 MG Tab PO SCH (21:17)
[2020-04-09] MEDS: Lisinopril 20 MG Tab PO SCH ×2 (10:00→11:31)
[2020-04-09] MEDS: Aspirin 81 MG Tab.EC PO SCH ×2 (10:01→11:32)
[2020-04-09] MEDS: Clopidogrel 75 MG Tab PO SCH ×2 (10:01→11:32)
[2020-04-09] MEDS: Magnesium Oxide 400 MG Tab PO SCH ×3 (10:01→21:34)
[2020-04-09] MEDS: Pantoprazole 40 MG Tab.CR PO SCH ×2 (10:01→11:32)
[2020-04-09] MEDS: Cetirizine 10 MG Tab PO SCH ×2 (10:01→11:32)
--- NOTE | 2020-04-09 13:11 | PCM.PN ---
- General Info Date of Service: 04/09/20 Subjective Update: No acute events overnight. Vital signs have been stable. Urine culture grew out Citrobacter which is sensitive to the ceftriaxone. Strength is slowly improving but she remains quite weak. She was able to make it out into the hallway with ambulation today which is a big improvement. She reports that she is feeling better today other than feeling weak. No nausea or diarrhea. No fevers. She does occasionally have difficulty swallowing which seems to be difficulty remembering to swallow food when she gets it in her mouth. She and her daughter are thinking that subacute rehab would be beneficial. Functional Status: Reports: Pain Controlled, Tolerating Diet - Review of Systems General: Reports: Weakness. Denies: Fever - Patient Data Vitals - Most Recent: Last Vital Signs Temp 36.9 C 04/09/20 11:04 Pulse 67 04/09/20 11:31 Resp 12 04/09/20 11:04 BP 128/36 L 04/09/20 11:31 Pulse Ox 92 L 04/09/20 11:04 Weight - Most Recent: 48.988 kg I&O - Last 24 Hours: Intake & Output 04/08/20 04/09/20 04/09/20 22:59 06:59 14:59 Intake Total 220 Output Total 250 200 Balance -30 -200 Jeff Results Last 24 Hours: Microbiology 04/07/20 16:18 Urine Culture - Final Urine, Catheterized Citrobacter Freundii Med Orders - Current: Current Medications Acetaminophen (Tylenol) 650 mg PO Q4H PRN PRN Reason: Pain (Mild 1-3)/fever Last Admin: 04/08/20 15:11 Dose: 650 mg Documented by: Aspirin (Halfprin) 81 mg PO DAILY [facility] Last Admin: 04/09/20 11:32 Dose: 81 mg Documented by: Cetirizine HCl (Zyrtec) 10 mg PO DAILY [facility] Last Admin: 04/09/20 11:32 Dose: 10 mg Documented by: Clopidogrel Bisulfate (Plavix) 75 mg PO DAILY [facility] Last Admin: 04/09/20 11:32 Dose: 75 mg Documented by: Dimethicone/Zinc Oxide (Rash Relief-Zinc Oxide [place]) 30 gm TOP ASDIRECTED PRN PRN Reason: Rash Last Admin: 04/07/20 23:46 Dose: 1 spray Documented by: Enoxaparin Sodium (Lovenox) 30 mg SUBCUT BEDTIME [facility] Last Admin: 04/08/20 21:16 Dose: 30 mg Documented by: Fluticasone Propionate (Flonase) 0 gm KARLA DAILY PRN PRN Reason: ALLERGIES Lisinopril (Prinivil) 40 mg PO DAILY [facility] Last Admin: 04/09/20 11:31 Dose: 40 mg Documented by: Magnesium Oxide (Magnesium Oxide) 400 mg PO BID [facility] Last Admin: 04/09/20 11:32 Dose: 400 mg Documented by: Melatonin (Melatonin) 9 mg PO BEDTIME [facility] Last Admin: 04/08/20 21:17 Dose: 9 mg Documented by: Metoprolol Succinate 50 mg/ (Metoprolol Succinate 25 mg) 75 mg PO BID [facility] Last Admin: 04/09/20 11:31 Dose: 75 mg Documented by: Mirtazapine (Remeron) 7.5 mg PO BEDTIME [facility] Last Admin: 04/08/20 21:16 Dose: 7.5 mg Documented by: Ondansetron HCl (Zofran) 4 mg IV Q4H PRN PRN Reason: Nausea/Vomiting Pantoprazole Sodium (Protonix) 40 mg PO ACBREAKFAST [facility] Last Admin: 04/09/20 11:32 Dose: 40 mg Documented by: Polyethylene Glycol (Miralax) 17 gm PO DAILY PRN PRN Reason: Constipation Sodium Chloride (Saline Flush) 10 ml FLUSH ASDIRECTED PRN PRN Reason: Keep Vein Open Discontinued Medications Lactated Ringer's (Ringers, Lactated) 1,000 mls @ 999 mls/hr IV ASDIRECTED [facility] Last Admin: 04/07/20 14:39 Dose: 999 mls/hr Documented by: Lactated Ringer's (Ringers, Lactated) 1,000 mls @ 250 mls/hr IV BOLUS ONE Stop: 04/07/20 20:19 Last Admin: 04/07/20 16:38 Dose: 250 mls/hr Documented by: Ceftriaxone Sodium 1 gm/ (Sodium Chloride) 50 mls @ 100 mls/hr IV ONETIME ONE Stop: 04/07/20 16:50 Last Admin: 04/07/20 16:37 Dose: 100 mls/hr Documented by: Sodium Chloride (Normal Saline) 1,000 mls @ 250 mls/hr IV ASDIRECTED [facility] Sodium Chloride (Normal Saline) 1,000 mls @ 75 mls/hr IV ASDIRECTED [facility] Last Admin: 04/07/20 23:02 Dose: 75 mls/hr Documented by: Ceftriaxone Sodium 1 gm/ (Sodium Chloride) 50 mls @ 100 mls/hr IV Q24H [facility] Last Admin: 04/08/20 16:43 Dose: 100 mls/hr Documented by: Magnesium Sulfate 2 gm/ Premix 50 mls @ 25 mls/hr IV ONETIME ONE Stop: 04/08/20 10:59 Last Admin: 04/08/20 08:56 Dose: 25 mls/hr Documented by: Pantoprazole Sodium (Protonix Iv) 40 mg IVPUSH Q12H [facility] Last Admin: 04/07/20 20:37 Dose: 40 mg Documented by: Pantoprazole Sodium (Protonix Iv) 40 mg IVPUSH Q12H [facility] Last Admin: 04/08/20 09:32 Dose: Not Given Documented by: Sodium Chloride (Saline Flush) 10 ml FLUSH ASDIRECTED PRN PRN Reason: Keep Vein Open Last Admin: 04/07/20 14:39 Dose: 10 ml Documented by: - Exam Quality Assessment: No: Supplemental Oxygen General: Alert, Oriented, Cooperative, No Acute Distress Lungs: Normal Respiratory Effort Cardiovascular: Regular Rate, Regular Rhythm GI/Abdominal Exam: Soft, No Distention Extremities: No Pedal Edema Skin: Warm, Dry Neurological: No New Focal Deficit Psy/Mental Status: Alert, Normal Affect Sepsis Event Note - Evaluation Sepsis Screening Result: No Definite Risk - Focused Exam Vital Signs: Vital Signs Temp Pulse Pulse Pulse Resp BP BP 04/09/20 11:31 67 128/36 L 04/09/20 11:04 36.9 C 71 12 128/36 L 04/09/20 10:01 62 127/67 04/09/20 10:00 127/67 04/09/20 07:19 36.6 C 62 12 127/67 04/09/20 03:20 35.9 C L 69 14 123/46 L Pulse Ox 04/09/20 11:31 04/09/20 11:04 92 L 04/09/20 10:01 04/09/20 10:00 04/09/20 07:19 94 L 04/09/20 03:20 95 - Problem List Review Problem List Initiated/Reviewed/Updated: Yes - My Orders Last 24 Hours: My Active Orders 04/09/20 21:00 Ciprofloxacin [Ciprofloxacin HCl] 250 mg PO BID - Plan Plan:: ASSESSMENT AND PLAN URINARY TRACT INFECTION-history of recent infection treated with Bactrim which probably caused her nausea, vomiting, diarrhea and weakness. Urine culture grew out Citrobacter. She is slowly improving but remains quite weak. -Change antibiotics to ciprofloxacin starting tonight -Physical therapy for weakness NAUSEA, VOMITING AND DIARRHEA-no recurrence during the hospital stay. -Saline lock IV -Nausea medication as needed -Protonix 40 mg p.o. daily CHRONIC KIDNEY DISEASE STAGE III-renal function improved with hydration. -Closely monitor urine output and renal function DEHYDRATION-resolved RECENT CVA-residual left-sided weakness, exacerbated by current illness. Also some difficulty with swallowing. -Physical therapy consult -Speech pathology evaluation MAINTENANCE ISSUES -DVT prophylaxis; enoxaparin -GI prophylaxis; Protonix as above -Kumari catheter; not indicated -Nutrition; 2 g sodium diet DISPOSITION-anticipate discharge to TCU for subacute rehab after the hospital stay. Tez Galo MD
[2020-04-09] MEDS: Ciprofloxacin 500 MG Tab PO SCH (15:47)
[2020-04-09] MEDS: Melatonin 3 MG Tab PO SCH (21:34)
[2020-04-09] MEDS: Enoxaparin 30 MG/0.3 ML Syringe SUBCUT SCH (21:34)
[2020-04-09] MEDS: Mirtazapine 15 MG Tab PO SCH (21:34)
[2020-04-10 07:55] VITALS: BP 123/43; PULSE 80
[2020-04-10] MEDS: Clopidogrel 75 MG Tab PO SCH (08:43)
[2020-04-10] MEDS: Aspirin 81 MG Tab.EC PO SCH (08:43)
[2020-04-10] MEDS: Cetirizine 10 MG Tab PO SCH (08:43)
[2020-04-10] MEDS: Lisinopril 20 MG Tab PO SCH (08:43)
[2020-04-10] MEDS: Magnesium Oxide 400 MG Tab PO SCH (08:43)
[2020-04-10] MEDS: Ciprofloxacin 500 MG Tab PO SCH (08:44)
[2020-04-10] MEDS: Pantoprazole 40 MG Tab.CR PO SCH (08:44)
--- NOTE | 2020-04-10 10:59 | PCM.DCSUM1 ---
Discharge Summary - Hospital Course Brief History: 89-year-old female with history of recent cerebrovascular accident and well-controlled diabetes who presented with nausea, diarrhea and dehydration. She was admitted for management of recurrent urinary tract infection, acute kidney injury with moderate dehydration. Diagnosis: Stroke: No - Discharge Data Discharge Date: 04/10/20 Discharge Disposition: DC/Tfer to SNF 03 Condition: Good - Referral to Home Health Primary Care Physician: Anand Jean NP - Patient Summary/Data Consults: Consultations 04/07/20 19:26 PT Evaluation and Treatment [CONS] Routine Please Evaluate and Treat. PT Reason for Consult: Weakness This query below is only for informational purposes and is not editable. 04/08/20 12:30 Consult to Speech Language Pathology [SEWING MACHINE TESTER Evaluation and Treatment] [CONS] Routine Please Evaluate and Treat SEWING MACHINE TESTER Reason for Consult: Swallow Pending Discharge: Yes Discharge Disposition: Home This query below is only for informational purposes and is not editable. Admission Diagnosis/Problem: UTI (urinary tract infection), uncomplicated Hospital Course: Dania presented to the emergency room with fatigue, weakness, nausea, diarrhea and dehydration. She had recently been treated for urinary tract infection with 10 days of double strength Bactrim. While she was on the antibiotic she developed the above symptoms and they did progress during the time that she was treated and extended beyond her treatment for the infection. Work-up in the emergency room revealed mild leukocytosis as well as acute kidney injury and hyponatremia. Urinalysis continued to be suggestive of infection. She was dehydrated and very weak. She was admitted to the hospital for further management. Cultures were obtained and she was started on ceftriaxone. With hydration over the next 24 hours we saw normalization of her white blood cell count as well as a significant improvement in her hyponatremia and kidney function. Symptomatically she was improving. Her strength was improving but she did remain quite weak initially. The plan was to test stool for C. difficile as well as set up a stool culture but she has not had significant diarrhea during the hospital stay so these tests were never completed. Eventually her urine culture did grow out a Citrobacter and she was transitioned to oral ciprofloxacin. We have seen improvements in strength but she does remain quite weak. She was noted to have some difficulty swallowing. She was evaluated by speech pathology who felt that her swallowing was quite good but sometimes she would forget to swallow what was in her mouth or have trouble coordinating the initiation of swallowing. She has done well with cueing and reminders. She has made good progress during the hospital stay but remains quite weak. After discussion with the patient and her 2 daughters the decision was made to transition to subacute rehab before going home. Her kidney function has improved to nearly baseline prior to discharge. Her sodium is still slightly low but dramatically better. Vitals are all stable. She did tolerate the transition to the oral ciprofloxacin. I suspect that all of the issues leading to her being admitted were related to the Bactrim use including both the duration and the dosing. I would not say that she is allergic to the medication but if it is used in the future she should have single strength dosing. She is stable and safe for discharge at this time. I would anticipate a fairly quick recovery over the next 1 to 2 weeks. She will be receiving therapy from physical therapy, occupational therapy and speech pathology. - Patient Instructions Diet: Regular Diet as Tolerated (geriatric diet) Activity: As Tolerated Showering/Bathing: May Shower Notify Provider of: Fever, Increased Pain, Nausea and/or Vomiting Other/Special Instructions: 1. Speech Pathology recommendations - Regular diet with thin liquids with moderate assistance by giving verbal and tactile cueing to swallow while eating. Alternate food and liquids to allow liquid to assist with initiation of swallow. Drink liquid from a straw. Crush up pills with pudding/applesauce with a verbal cue to swallow and drink of water to assist. 2. Referral to Physical and Occupational Therapy for strengthening in the setting of generalized weakness following an acute infection complicating recent weakness related to a cerebrovascular accident. 3. CODE STATUS is full code - Discharge Plan *PRESCRIPTION DRUG MONITORING PROGRAM REVIEWED*: Not Applicable *COPY OF PRESCRIPTION DRUG MONITORING REPORT IN PATIENT RY: Not Applicable Prescriptions/Med Rec: Ciprofloxacin [Ciprofloxacin HCl] 250 mg PO BIDAC #3 tablet Acetaminophen [Tylenol] 650 mg PO Q4H PRN #200 tablet PRN Reason: Pain (Mild 1-3)/fever Home Medications: Home Meds Aspirin 81 mg PO DAILY 03/17/14 [History] Cetirizine HCl [Zyrtec] 10 mg PO DAILY 03/17/14 [History] Fluticasone Propionate 2 spray KARLA DAILY PRN 03/17/14 [History] Omeprazole 20 mg PO DAILY 03/17/14 [History] Clopidogrel Bisulfate [Clopidogrel] 75 mg PO DAILY 04/07/20 [History] Mirtazapine 7.5 mg PO BEDTIME 04/07/20 [History] Metoprolol Succinate [Toprol XL 50mg] 75 mg PO BID 04/08/20 [History] lisinopriL [Lisinopril] 40 mg PO DAILY 04/08/20 [History] Acetaminophen [Tylenol] 650 mg PO Q4H PRN #200 tablet 04/10/20 [Rx] Ciprofloxacin [Ciprofloxacin HCl] 250 mg PO BIDAC #3 tablet 04/10/20 [Rx] Oxygen Therapy Mode: Room Air Patient Handouts: Urinary Tract Infection, Adult, Ciprofloxacin tablets Referrals: Alexis Oneil MD [Physician] - - Discharge Summary/Plan Comment DC Time >30 min.: Yes (40 - new [place] discharge ) - Patient Data Vitals - Most Recent: Last Vital Signs Temp 36.6 C 04/10/20 07:53 Pulse 80 04/10/20 08:52 Resp 16 04/10/20 07:53 BP 123/43 L 04/10/20 08:52 Pulse Ox 97 04/10/20 07:53 Weight - Most Recent: 50.031 kg I&O - Last 24 hours: Intake & Output 04/09/20 04/10/20 04/10/20 22:59 06:59 14:59 Intake Total 280 240 240 Output Total 200 150 Balance 80 90 240 Lab Results - Last 24 hrs: Laboratory Results - last 24 hr 04/09/20 Range/Units 15:39 SARS Virus RNA (PCR) Negative (NEGATIVE) NIGHAT Results - Last 24 hrs: Microbiology 04/07/20 16:18 Urine Culture - Final Urine, Catheterized Citrobacter Freundii Med Orders - Current: Current Medications Acetaminophen (Tylenol) 650 mg PO Q4H PRN PRN Reason: Pain (Mild 1-3)/fever Last Admin: 04/08/20 15:11 Dose: 650 mg Documented by: Aspirin (Halfprin) 81 mg PO DAILY [facility] Last Admin: 04/10/20 08:43 Dose: 81 mg Documented by: Cetirizine HCl (Zyrtec) 10 mg PO DAILY [facility] Last Admin: 04/10/20 08:43 Dose: 10 mg Documented by: Ciprofloxacin (Ciprofloxacin Hcl) 250 mg PO BIDAC [facility] Last Admin: 04/10/20 08:44 Dose: 250 mg Documented by: Clopidogrel Bisulfate (Plavix) 75 mg PO DAILY [facility] Last Admin: 04/10/20 08:43 Dose: 75 mg Documented by: Dimethicone/Zinc Oxide (Rash Relief-Zinc Oxide [place]) 30 gm TOP ASDIRECTED PRN PRN Reason: Rash Last Admin: 04/07/20 23:46 Dose: 1 spray Documented by: Enoxaparin Sodium (Lovenox) 30 mg SUBCUT BEDTIME [facility] Last Admin: 04/09/20 21:34 Dose: 30 mg Documented by: Fluticasone Propionate (Flonase) 0 gm KARLA DAILY PRN PRN Reason: ALLERGIES Lisinopril (Prinivil) 40 mg PO DAILY [facility] Last Admin: 04/10/20 08:43 Dose: 40 mg Documented by: Magnesium Oxide (Magnesium Oxide) 400 mg PO BID [facility] Last Admin: 04/10/20 08:43 Dose: 400 mg Documented by: Melatonin (Melatonin) 9 mg PO BEDTIME [facility] Last Admin: 04/09/20 21:34 Dose: 9 mg Documented by: Metoprolol Succinate 50 mg/ (Metoprolol Succinate 25 mg) 75 mg PO BID [facility] Last Admin: 04/10/20 08:52 Dose: 75 mg Documented by: Mirtazapine (Remeron) 7.5 mg PO BEDTIME [facility] Last Admin: 04/09/20 21:34 Dose: 7.5 mg Documented by: Ondansetron HCl (Zofran) 4 mg IV Q4H PRN PRN Reason: Nausea/Vomiting Pantoprazole Sodium (Protonix) 40 mg PO ACBREAKFAST [facility] Last Admin: 04/10/20 08:44 Dose: 40 mg Documented by: Polyethylene Glycol (Miralax) 17 gm PO DAILY PRN PRN Reason: Constipation Sodium Chloride (Saline Flush) 10 ml FLUSH ASDIRECTED PRN PRN Reason: Keep Vein Open Discontinued Medications Lactated Ringer's (Ringers, Lactated) 1,000 mls @ 999 mls/hr IV ASDIRECTED [facility] Last Admin: 04/07/20 14:39 Dose: 999 mls/hr Documented by: Lactated Ringer's (Ringers, Lactated) 1,000 mls @ 250 mls/hr IV BOLUS ONE Stop: 04/07/20 20:19 Last Admin: 04/07/20 16:38 Dose: 250 mls/hr Documented by: Ceftriaxone Sodium 1 gm/ (Sodium Chloride) 50 mls @ 100 mls/hr IV ONETIME ONE Stop: 04/07/20 16:50 Last Admin: 04/07/20 16:37 Dose: 100 mls/hr Documented by: Sodium Chloride (Normal Saline) 1,000 mls @ 250 mls/hr IV ASDIRECTED JULIANE Sodium Chloride (Normal Saline) 1,000 mls @ 75 mls/hr IV ASDIRECTED [facility] Last Admin: 04/07/20 23:02 Dose: 75 mls/hr Documented by: Ceftriaxone Sodium 1 gm/ (Sodium Chloride) 50 mls @ 100 mls/hr IV Q24H [facility] Last Admin: 04/08/20 16:43 Dose: 100 mls/hr Documented by: Magnesium Sulfate 2 gm/ Premix 50 mls @ 25 mls/hr IV ONETIME ONE Stop: 04/08/20 10:59 Last Admin: 04/08/20 08:56 Dose: 25 mls/hr Documented by: Pantoprazole Sodium (Protonix Iv) 40 mg IVPUSH Q12H [facility] Last Admin: 04/07/20 20:37 Dose: 40 mg Documented by: Pantoprazole Sodium (Protonix Iv) 40 mg IVPUSH Q12H [facility] Last Admin: 04/08/20 09:32 Dose: Not Given Documented by: Sodium Chloride (Saline Flush) 10 ml FLUSH ASDIRECTED PRN PRN Reason: Keep Vein Open Last Admin: 04/07/20 14:39 Dose: 10 ml Documented by:
== END 2020-04-10 13:20 | DRG 683 ==
LOC: JP.ED 11:57 → JP.MS 17:30
PROVIDERS: ADMIT Hospitalist; ATTEND Internal Medicine
DX: N17.9 Acute kidney failure, unspecified (principal); J30.9 Allergic rhinitis, unspecified; N39.0 Urinary tract infection, site not specified; I69.354 Hemiplegia and hemiparesis following cerebral infarction affecting left non-dominant side; E87.1 Hypo-osmolality and hyponatremia; I10 Essential (primary) hypertension; E86.0 Dehydration; H54.7 Unspecified visual loss; E78.00 Pure hypercholesterolemia, unspecified; K21.9 Gastro-esophageal reflux disease without esophagitis; K52.9 Noninfective gastroenteritis and colitis, unspecified; E66.9 Obesity, unspecified; I69.351 Hemiplegia and hemiparesis following cerebral infarction affecting right dominant side; K29.70 Gastritis, unspecified, without bleeding; M19.90 Unspecified osteoarthritis, unspecified site; Z93.3 Colostomy status; Z98.890 Other specified postprocedural states; Z88.6 Allergy status to analgesic agent; G43.909 Migraine, unspecified, not intractable, without status migrainosus; F32.9 Major depressive disorder, single episode, unspecified; N18.3 Chronic kidney disease, stage 3 (moderate); M85.80 Other specified disorders of bone density and structure, unspecified site; B96.89 Other specified bacterial agents as the cause of diseases classified elsewhere; Z85.828 Personal history of other malignant neoplasm of skin; Z98.49 Cataract extraction status, unspecified eye; Z90.49 Acquired absence of other specified parts of digestive tract; Z79.82 Long term (current) use of aspirin; Z79.02 Long term (current) use of antithrombotics/antiplatelets; Z79.899 Other long term (current) drug therapy; Z88.8 Allergy status to other drugs, medicaments and biological substances; Z88.5 Allergy status to narcotic agent; Z87.440 Personal history of urinary (tract) infections; H91.92 Unspecified hearing loss, left ear; E11.22 Type 2 diabetes mellitus with diabetic chronic kidney disease; I12.9 Hypertensive chronic kidney disease with stage 1 through stage 4 chronic kidney disease, or unspecified chronic kidney disease; Z20.828 Contact with and (suspected) exposure to other viral communicable diseases
CPT/HCPCS: 36415; 74176; 80053; 81001; 83605; 84443; 84484; 85025; 87086; 87088; 87186; 96361; 96365; 99285; J0696; J7050; J7120 ×2; 80048; 83735; 92610-GN; 97110-GP; 97161-GP; 97530-GP; 99284; A9270-GY; C9113; J1650; J3475; J7030; U0002

== ENCOUNTER 2020-06-05 02:21 | Emergency (ER) | payer MEDICARE, OTHER ==
--- NOTE | 2020-06-05 02:39 | EDM.PDOC ---
ED HPI GENERAL MEDICAL PROBLEM - General Chief Complaint: Chest Pain Stated Complaint: CHEST PAINS/HEARTBURN Time Seen by Provider: 06/05/20 02:40 Source of Information: Reports: Patient, Family, Old Records, RN History Limitations: Reports: No Limitations - History of Present Illness INITIAL COMMENTS - FREE TEXT/NARRATIVE: 89 yo female from a local assisted living facility presents with anterior chest pain since about 2200h 06/04/2020. Had associated nausea and vomiting. No SOB. Pain 04/26. Is on metoprolol, ASA 81mg qd, and Plavix already. No radiation of the pain. No hx of CAD, but has had a CVA. No tx prior to arrival. Had CVA this past February. 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: Aspirin (is on this daily) Middle Chest Pain Score (Numeric/FACES): 9 - Related Data Allergies Allergy/AdvReac Type Severity Reaction Status Date / Time metformin Allergy Cannot Verified 04/07/20 13:11 Remember codeine AdvReac Nausea and Verified 04/07/20 13:11 Vomiting oxycodone HCl [From Percocet] AdvReac Hallucinati Verified 04/07/20 13:11 ons Home Meds: Home Meds Aspirin 81 mg PO DAILY 03/17/14 [History] Cetirizine HCl [Zyrtec] 10 mg PO DAILY 03/17/14 [History] Fluticasone Propionate 2 spray KARLA DAILY PRN 03/17/14 [History] Omeprazole 20 mg PO DAILY 03/17/14 [History] Clopidogrel Bisulfate [Clopidogrel] 75 mg PO DAILY 04/07/20 [History] Metoprolol Succinate [Toprol XL 50mg] 75 mg PO BID 04/08/20 [History] lisinopriL [Lisinopril] 40 mg PO DAILY 04/08/20 [History] Acetaminophen [Tylenol] 325 mg PO Q4H PRN 06/05/20 [History] Ketotifen [Ketotifen 0.025% Ophth Soln] 1 drop EYEBOTH ASDIRECTED 06/05/20 [History] Loperamide HCl [Imodium A-D] 2 mg PO ASDIRECTED 06/05/20 [History] glipiZIDE [Glucotrol XL] 5 mg PO BRK 06/05/20 [History] Past Medical History HEENT History: Reports: Allergic Rhinitis, Cataract, Impaired Vision, Otitis Media, Sinusitis, Other (See Below) Other HEENT History: 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 Cardiovascular History: Reports: Arrhythmia, Heart Murmur, High Cholesterol, Hypertension, Other (See Below) Other Cardiovascular History: tachycardia Respiratory History: Reports: Bronchitis, Recurrent Gastrointestinal History: Reports: Chronic Diarrhea, Gastritis, GERD Genitourinary History: Reports: UTI, Recurrent 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: , 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 Musculoskeletal History: Reports: Arthritis, Fracture, Osteoarthritis, Other (See Below) Other Musculoskeletal History: osteopenia Neurological History: Reports: Migraines, Vertigo Other Neuro History: x2 1970 and 2012 Psychiatric History: Reports: Depression Endocrine/Metabolic History: Reports: Diabetes, Type II, Other (See Below) Other Endocrine/Metabolic History: little nodule on us in thyroid Hematologic History: Reports: None Immunologic History: Reports: None Oncologic (Cancer) History: Reports: Other (See Below) Other Oncologic History: skin CA Dermatologic History: Reports: Other (See Below) 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 - Infectious Disease History Infectious Disease History: Reports: Chicken Pox, Measles, Mononucleosis, Pertussis (Whooping Cough) - Past Surgical History Head Surgeries/Procedures: Reports: None HEENT Surgical History: Reports: Cataract Surgery, Oral Surgery Cardiovascular Surgical History: Reports: None Respiratory Surgical History: Reports: None GI Surgical History: Reports: Appendectomy, Colostomy Female Surgical History: Reports: D&C Endocrine Surgical History: Reports: None Neurological Surgical History: Reports: None Musculoskeletal Surgical History: Reports: None Oncologic Surgical History: Reports: None Dermatological Surgical History: Reports: Plastic Surgical Reconstruction/Repair, Skin Biopsy Social & Family History - Family History Family Medical History: Noncontributory - Tobacco Use Tobacco Use Status *Q: Never Tobacco User - Caffeine Use Caffeine Use: Reports: Coffee - Recreational Drug Use Recreational Drug Use: No ED ROS GENERAL - Review of Systems Review Of Systems: See Below Constitutional: Reports: No Symptoms HEENT: Reports: No Symptoms Respiratory: Reports: No Symptoms Cardiovascular: Reports: Chest Pain Endocrine: Reports: No Symptoms GI/Abdominal: Reports: Nausea, Vomiting : Reports: No Symptoms Musculoskeletal: Reports: No Symptoms Skin: Reports: No Symptoms Neurological: Reports: No Symptoms Psychiatric: Reports: No Symptoms ED EXAM, GENERAL - Physical Exam Exam: See Below Exam Limited By: No Limitations General Appearance: Alert, WD/WN, No Apparent Distress Eye Exam: Bilateral Eye: Normal Inspection Ears: Normal External Exam, Normal Canal, Hearing Grossly Normal Ear Exam: Bilateral Ear: Auricle Normal, Canal Normal Nose: Normal Inspection, No Blood Throat/Mouth: Normal Inspection, Normal Lips, Normal Oropharynx, Normal Voice, No Airway Compromise Head: Atraumatic, Normocephalic Neck: Normal Inspection Respiratory/Chest: No Respiratory Distress, Lungs Clear, Normal Breath Sounds, No Accessory Muscle Use Cardiovascular: Regular Rate, Rhythm, No Edema GI/Abdominal: Normal Bowel Sounds, Soft, Non-Tender, No Distention Back Exam: Normal Inspection Extremities: Normal Inspection, Normal Range of Motion, Non-Tender, No Pedal Edema Neurological: Alert, Oriented, CN II-XII Intact, Normal Cognition, No Motor/S ensory Deficits Psychiatric: Normal Affect, Normal Mood Skin Exam: Warm, Dry, Intact, Normal Color, No Rash #1 Interpretation EKG Date: 06/05/20 Time: :20 Rhythm: NSR Rate (Beats/Min): 91 [place]: Normal P-Wave: Present QRS: RBBB ST-T: Elevated QT: Normal Comparison: NA - No Prior EKG Course - Vital Signs Last Recorded V/S: Last Vital Signs Temp 35.9 C L 06/05/20 02:24 Pulse 83 06/05/20 02:47 Resp 13 06/05/20 02:24 BP 168/91 H 06/05/20 02:47 Pulse Ox 97 06/05/20 02:24 - Orders/Labs/Meds Orders: Active Orders 24 hr Category Date Time Status Cardiac Monitoring [RC] .As Directed Care 06/05/20 02:37 Active EKG Documentation Completion [RC] ASDIRECTED Care 06/05/20 02:37 Active Chest 1V Frontal [CR] Stat Exams 06/05/20 02:47 Ordered BASIC METABOLIC PANEL,BMP [CHEM] Stat Lab 06/05/20 02:42 Ordered CBC W/O DIFF,HEMOGRAM [HEME] Stat Lab 06/05/20 02:42 Ordered TROPONIN I [CHEM] Stat Lab 06/05/20 02:42 Ordered UA W/MICROSCOPIC [URIN] Stat Lab 06/05/20 02:42 Ordered Sodium Chloride 0.9% [Normal Saline] 1,000 ml Med 06/05/20 02:45 Active IV ASDIRECTED EKG 12 Lead [EK] Routine Ther 06/05/20 02:37 Ordered Medication Orders Sodium Chloride (Normal Saline) 1,000 mls @ 75 mls/hr IV ASDIRECTED JULIANE Last Admin: 06/05/20 02:49 Dose: 75 mls/hr Documented by: Meds: Medications Generic Name Dose Route Start Last Admin Trade Name Freq PRN Reason Stop Dose Admin Sodium Chloride 1,000 mls @ 75 mls/hr 06/05/20 02:45 06/05/20 02:49 Normal Saline IV 75 mls/hr ASDIRECTED JULIANE Administration Discontinued Medications Generic Name Dose Route Start Last Admin Trade Name Freq PRN Reason Stop Dose Admin Aspirin 324 mg 06/05/20 02:40 06/05/20 02:48 Aspirin PO 06/05/20 02:41 324 mg ONETIME ONE Administration Heparin Sodium (Porcine) 4,000 units 06/05/20 02:45 Heparin Sodium IVPUSH 06/05/20 02:46 .BOLUS ONE Metoprolol Tartrate 50 mg 06/05/20 02:40 06/05/20 02:47 Lopressor PO 06/05/20 02:41 50 mg ONETIME ONE Administration Morphine Sulfate 4 mg 06/05/20 02:41 06/05/20 02:48 Morphine IVPUSH 06/05/20 02:42 4 mg ONETIME ONE Administration Ondansetron HCl 4 mg 06/05/20 02:47 Zofran IVPUSH 06/05/20 02:48 ONETIME ONE Ticagrelor 180 mg 06/05/20 02:40 Brilinta PO 06/05/20 02:41 ONETIME ONE - Radiology Interpretation Free Text/Narrative:: CXR- Departure - Departure Time of Disposition: 15:15 Disposition: DC/Tfer to Acute Hospital 02 Reason for Transfer *Q: Primary PCI Indicated Condition: Critical Clinical Impression: ST elevation myocardial infarction (STEMI) of anterior wall Referrals: Alexis Oneil MD [Primary Care Provider] - Forms: ED Department Discharge Sepsis Event Note (ED) - Evaluation Sepsis Screening Result: No Definite Risk - Focused Exam Vital Signs: Vital Signs Temp Pulse Pulse Resp BP BP Pulse Ox 06/05/20 02:47 83 168/91 H 06/05/20 02:43 168/91 H 06/05/20 02:24 35.9 C L 99 13 97 - My Orders Last 24 Hours: My Active Orders 06/05/20 02:37 Cardiac Monitoring [RC] .As Directed EKG Documentation Completion [RC] ASDIRECTED EKG 12 Lead [EK] Routine 06/05/20 02:42 BASIC METABOLIC PANEL,BMP [CHEM] Stat CBC W/O DIFF,HEMOGRAM [HEME] Stat TROPONIN I [CHEM] Stat UA W/MICROSCOPIC [URIN] Stat 06/05/20 02:45 Sodium Chloride 0.9% [Normal Saline] 1,000 ml IV ASDIRECTED 06/05/20 02:47 Chest 1V Frontal [CR] Stat - Assessment/Plan Last 24 Hours: My Active Orders 06/05/20 02:37 Cardiac Monitoring [RC] .As Directed EKG Documentation Completion [RC] ASDIRECTED EKG 12 Lead [EK] Routine 06/05/20 02:42 BASIC METABOLIC PANEL,BMP [CHEM] Stat CBC W/O DIFF,HEMOGRAM [HEME] Stat TROPONIN I [CHEM] Stat UA W/MICROSCOPIC [URIN] Stat 06/05/20 02:45 Sodium Chloride 0.9% [Normal Saline] 1,000 ml IV ASDIRECTED 06/05/20 02:47 Chest 1V Frontal [CR] Stat
[2020-06-05] MEDS ORDERED: Aspirin 81 MG Tab.Chew PO ONE (02:40)
[2020-06-05] MEDS ORDERED: Ticagrelor 90 MG Tab PO ONE (02:40)
[2020-06-05] MEDS ORDERED: Metoprolol Tartrate 50 MG Tab PO ONE (02:40)
[2020-06-05] MEDS ORDERED: Morphine 4 MG/ML Syringe IVPUSH ONE (02:41)
[2020-06-05] MEDS ORDERED: Heparin Sodium 5,000 Units/ML Vial IVPUSH ONE (02:45)
[2020-06-05] MEDS ORDERED: Sodium Chloride 0.9% 1,000 ML IV SCH (02:45)
[2020-06-05] MEDS ORDERED: Ondansetron 4 MG/2 ML SDV IVPUSH ONE ×2 (02:47→03:19)
[2020-06-05] MEDS ORDERED: Clopidogrel 75 MG Tab PO ONE ×2 (03:01→03:20)
[2020-06-05 03:13] VITALS: BP 169/86; PULSE 89
== END 2020-06-05 03:48 ==
LOC: JP.ED 02:21
DX: I21.09 ST elevation (STEMI) myocardial infarction involving other coronary artery of anterior wall (principal); I10 Essential (primary) hypertension; K21.9 Gastro-esophageal reflux disease without esophagitis; M19.90 Unspecified osteoarthritis, unspecified site; I25.10 Atherosclerotic heart disease of native coronary artery without angina pectoris; E11.9 Type 2 diabetes mellitus without complications; I45.10 Unspecified right bundle-branch block; Z88.5 Allergy status to narcotic agent; Z79.82 Long term (current) use of aspirin; Z79.02 Long term (current) use of antithrombotics/antiplatelets; Z79.899 Other long term (current) drug therapy
CPT/HCPCS: 36415; 71045; 80048; 84484; 85027; 93005; 93010; 96374; 96375; 96376; 99285; A9270; J1644; J2270; J2405; J7030

== ENCOUNTER 2020-06-05 03:54 | Emergency (ER) | payer MEDICARE, OTHER ==
[2020-06-05] MEDS ORDERED: EPINEPHrine 1:10,000 1 MG/10 ML Syringe IV ONE ×3 (03:57→04:08)
--- NOTE | 2020-06-05 04:21 | EDM.PDOC ---
ED HPI GENERAL MEDICAL PROBLEM - General Chief Complaint: CPR in Progress Stated Complaint: MEDICAL VIA [facility] Time Seen by Provider: 06/05/20 03:55 Source of Information: Reports: EMS History Limitations: Reports: No Limitations - History of Present Illness INITIAL COMMENTS - FREE TEXT/NARRATIVE: 89 yo female had minutes before left our ER en route to the [facility] laboratory worker when she coded in the ambulance. The crew began resuscitation and turned around and came back to our ER for assistance. On arrival she is pulseless and nonbreathing. Her heart monitor shows a pulseless electrical activity. 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: CPR, Oxygen - Related Data Allergies Allergy/AdvReac Type Severity Reaction Status Date / Time metformin Allergy Cannot Verified 04/07/20 13:11 Remember codeine AdvReac Nausea and Verified 04/07/20 13:11 Vomiting oxycodone HCl [From Percocet] AdvReac Hallucinati Verified 04/07/20 13:11 ons Home Meds: Home Meds Aspirin 81 mg PO DAILY 03/17/14 [History] Cetirizine HCl [Zyrtec] 10 mg PO DAILY 03/17/14 [History] Fluticasone Propionate 2 spray KARLA DAILY PRN 03/17/14 [History] Omeprazole 20 mg PO DAILY 03/17/14 [History] Clopidogrel Bisulfate [Clopidogrel] 75 mg PO DAILY 04/07/20 [History] Metoprolol Succinate [Toprol XL 50mg] 75 mg PO BID 04/08/20 [History] lisinopriL [Lisinopril] 40 mg PO DAILY 04/08/20 [History] Acetaminophen [Tylenol] 325 mg PO Q4H PRN 06/05/20 [History] Ketotifen [Ketotifen 0.025% Ophth Soln] 1 drop EYEBOTH ASDIRECTED 06/05/20 [History] Loperamide HCl [Imodium A-D] 2 mg PO ASDIRECTED 06/05/20 [History] glipiZIDE [Glucotrol XL] 5 mg PO BRK 20 [History] Past Medical History HEENT History: Reports: Allergic Rhinitis, Cataract, Impaired Vision, Otitis Media, Sinusitis, Other (See Below) Other HEENT History: 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 Cardiovascular History: Reports: Arrhythmia, Heart Murmur, High Cholesterol, Hypertension, Other (See Below) Other Cardiovascular History: tachycardia Respiratory History: Reports: Bronchitis, Recurrent Gastrointestinal History: Reports: Chronic Diarrhea, Gastritis, GERD Genitourinary History: Reports: UTI, Recurrent 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: , 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 Musculoskeletal History: Reports: Arthritis, Fracture, Osteoarthritis, Other (See Below) Other Musculoskeletal History: osteopenia Neurological History: Reports: Migraines, Vertigo Other Neuro History: x2 1970 and 2012 Psychiatric History: Reports: Depression Endocrine/Metabolic History: Reports: Diabetes, Type II, Other (See Below) Other Endocrine/Metabolic History: little nodule on us in thyroid Hematologic History: Reports: None Immunologic History: Reports: None Oncologic (Cancer) History: Reports: Other (See Below) Other Oncologic History: skin CA Dermatologic History: Reports: Other (See Below) 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 - Infectious Disease History Infectious Disease History: Reports: Chicken Pox, Measles, Mononucleosis, Pertussis (Whooping Cough) - Past Surgical History Head Surgeries/Procedures: Reports: None HEENT Surgical History: Reports: Cataract Surgery, Oral Surgery Cardiovascular Surgical History: Reports: None Respiratory Surgical History: Reports: None GI Surgical History: Reports: Appendectomy, Colostomy Female Surgical History: Reports: D&C Endocrine Surgical History: Reports: None Neurological Surgical History: Reports: None Musculoskeletal Surgical History: Reports: None Oncologic Surgical History: Reports: None Dermatological Surgical History: Reports: Plastic Surgical Reconstruction/Repair, Skin Biopsy Social & Family History - Family History Family Medical History: Noncontributory - Caffeine Use Caffeine Use: Reports: Coffee ED ROS GENERAL - Review of Systems Review Of Systems: Unable To Obtain Reason Not Obtained: patient is unresponsive ED EXAM, CPR - Physical Exam Exam: See Below Limited By: No Limitations, Other (apneic) General Appearance: WD/WN, Other (unresponsive). No: Alert, No Apparent Distress Eye Exam: Bilateral Eye: Normal Inspection, PERRL Ears: Normal External Exam Nose: Normal Inspection, No Blood Throat/Mouth: Normal Inspection, Normal Lips, Normal Teeth, Normal Oropharynx Head: Atraumatic, Normocephalic Respiratory Chest: Other (no spontaneous respirations). No: No Respiratory Distress Cardiovascular: No Edema, Absent Heart Sounds, Pulse with Compression, CPR In Progress, Other (no palpable pulse without chest compressions.). No: Regular Rate, Rhythm GI/Abdominal Exam: Soft Skin Exam: Dry, Intact, Pallor. No: Normal Color, Petechiae ED CPR PROCEDURES - Endotracheal Intubation Time of Intubation: 04:00 ET Intubation Indication: Cardiac Arrest Preparation: Balloon Tested, BVM Set Up Airway Assessment: Other (moderate clear secretions) Pre-Oxygenation: Assisted with BVM, 100% FiO2 Anesthesia Meds: Other (none) Placement: Orotracheal, Cuffed, Uncomplicated Placement Cords Visualized: Yes ETT Size In mm: 7 Number of Attempts: 1 Confirmed By: CO2 Indicator, Bilateral Breath Sounds, Chest Xray Tube Secured By: By RN Course - Vital Signs Text/Narrative:: Patient arrived with CPR in progress. Niko device was attached for assistance with compressions. Epinephrine 1 mg IV given every 5 minutes x 3 doses. #7 ET tube placed for improved ventilation. CXR showed ET tube about mid trachea. Heart monitor showed a PEA on arrival through to the end. Pupils showed dilatation towards the end of the code. when there was no definitive response to our resuscitation efforts the code was called @ about 0410h. Dania's daughter had already gone home so we called her and notified her of her mother's . [facility] home was chosen by daughter. Departure - Departure Time of Disposition: 04:15 Disposition: 20 Clinical Impression: Cardiorespiratory arrest, ST elevation myocardial infarction (STEMI) of anterior wall - Discharge Information *PRESCRIPTION DRUG MONITORING PROGRAM REVIEWED*: Not Applicable *COPY OF PRESCRIPTION DRUG MONITORING REPORT IN PATIENT RY: Not Applicable Referrals: Alexis Oneil MD [Primary Care Provider] - Forms: ED Department Discharge
[2020-06-05 05:00] VITALS: PULSE 0
--- NOTE | 2020-06-05 09:01 | CR ---
CHEST: Portable 06/05/2020 at 3:07 AM CLINICAL HISTORY:Chest pain COMPARISON:None FINDINGS: Heart size is upper limits of normal. The there is mild vascular cephalization. There is mild interstitial prominence with some Sabrina B lines. Some of these may be chronic. There are atherosclerotic changes in the aorta.. There are no effusions. IMPRESSION: Mild vascular congestion and some interstitial edema suggests some cardiac decompensation. These are superimposed over chronic lung changes.
== END 2020-06-05 05:45 | disposition expired ==
LOC: JP.ED 03:54
DX: I46.9 Cardiac arrest, cause unspecified (principal); I21.09 ST elevation (STEMI) myocardial infarction involving other coronary artery of anterior wall; I10 Essential (primary) hypertension; K21.9 Gastro-esophageal reflux disease without esophagitis; M19.90 Unspecified osteoarthritis, unspecified site; Z79.82 Long term (current) use of aspirin; Z79.02 Long term (current) use of antithrombotics/antiplatelets; Z79.84 Long term (current) use of oral hypoglycemic drugs; Z79.899 Other long term (current) drug therapy; Z88.8 Allergy status to other drugs, medicaments and biological substances; Z88.5 Allergy status to narcotic agent
CPT/HCPCS: 31500; 71045; 92950; 96374; 99285; J0171